=== PATIENT | male | born 1930 | race Caucasian/White ===

== ENCOUNTER → 2019-05-28 | Outpatient (CLI) | payer MEDICARE, OTHER ==
[2019-05-28] MEDS: REGADENOSON 0.4 MG/5 ML SYG (10:22)
== END | disposition home or self-care (01) ==
LOC: NUC 08:38
DX: I25.10 Atherosclerotic heart disease of native coronary artery without angina pectoris (principal); R53.83 Other fatigue; R07.9 Chest pain, unspecified; R06.02 Shortness of breath
CPT/HCPCS: 78452; 93017